=== PATIENT | female | born 1945 | race Caucasian/White ===

== ENCOUNTER → 2017-03-21 | Outpatient (CLI) | payer OTHER, BC ==
[~2017-03-21] MED LIST: AMLO-114 PO; ASPI-232 PO; ATOR-24 PO; CLTP PO; ESTR1CRE PV; ESZO1TAB18 PO; LORA-339 PO; LOSA50TA6 PO; LXP/20 PO; MELA3TAB12 PO; MULT-506 PO; MULTCAP94 PO; PRLSR20 PO; PTDOPS OP; WHITOIN3 OPB; ZNTT/150 PO
--- NOTE | 2017-03-25 14:58 | MAMMOGRAPHY REPORT ---
BILATERAL DIGITAL SCREENING MAMMOGRAM WITH CAD: 03/21/2017 CLINICAL HISTORY: Routine screening. Patient has no complaints. TECHNIQUE: Current study was also evaluated with a Computer Aided Detection (CAD) system. Bilatera l CC and MLO views were obtained. COMPARISON: Comparison is made to exams dated: 03/20/2016 mammogram, 03/13/2015 mammogram, 03/10/2014 mammogram, 03/09/2013 mammogram, 03/05/2012 mammogram, and 03/04/2011 mammogram - [facility]. BREAST COMPOSITION: There are scattered areas of fibroglandular density in both breasts. FINDINGS: There is an oval 7 mm mass seen within the left central breast, for which spot compressio n tomosynthesis views and possible breast ultrasound are recommended for further evaluation. This m ay represent a cyst. The remainder of both breasts are stable compared to prior exams, without suspicious masses, calcifi cations, or areas of architectural distortion noted. Scattered bilateral benign-appearing calcifica tions are not significantly changed. IMPRESSION: ACR BI-RADS CATEGORY 0: INCOMPLETE EVALUATION: NEED ADDITIONAL IMAGING EVALUATION Left breast mass, for which additional imaging evaluation is recommended. The patient will be muhammad d to schedule an appointment. Approximately 10% of breast cancers are not detected with mammography. A negative mammographic repor t should not delay biopsy if a clinically suggestive mass is present. Abby Dickerson M.D. /:03/21/2017 16:25:40 Airport Sales Agent: Ellie SINGH(Bruce)(Demar), [facility] letter sent: Addl Imaging 0 BI-RADS Code: ACR BI-RADS Category 0: Incomplete Evaluation: Need Additional Imaging Evaluation
== END | disposition home or self-care (01) ==
LOC: C.MAMM 11:43
PROVIDERS: ATTEND Internal Medicine
DX: Z12.31 Encounter for screening mammogram for malignant neoplasm of breast (principal); N63 Unspecified lump in breast

== ENCOUNTER → 2017-04-09 | Outpatient (CLI) | payer OTHER, BC ==
--- NOTE | 2017-04-09 16:40 | MAMMOGRAPHY REPORT ---
UNILATERAL LEFT DIGITAL DIAGNOSTIC MAMMOGRAM TOMOSYNTHESIS AND TARGETED LEFT ULTRASOUND: 04/09/2017 CLINICAL HISTORY: Call back from screening mammography for an oval 7 mm mass in the left central [address]. TECHNIQUE: Spot compression left CC and MLO 2-D digital and tomosynthesis images, full-field left CC and MLO to GE digital and tomosynthesis images were obtained. COMPARISON: Comparison is made to exams dated: 03/21/2017 mammogram, 03/20/2016 mammogram, 03/13/2015 m ammogram, 03/10/2014 mammogram, 03/09/2013 mammogram, and 03/05/2012 mammogram - [facility]. BREAST COMPOSITION: There are scattered areas of fibroglandular density in the left breast. FINDINGS: Spot compression views and tomosynthesis images of the left breast demonstrate persistence of a lobulated and circumscribed 5.5 x 8.0 x 5.0 mm mass in the 6:00 left breast, 5.9 cm distal to t he nipple. There are benign oil cysts identified in the 12:00 to 1:00 anterior left breast. Mild to moderate vascular calcification. No other definite mass, focal area of architectural distortion or suspicious microcavitation occasions are seen. Further evaluation with ultrasound was performed. Targeted ultrasound was performed in the 6:00, retroareolar and 12:00 axes of the left breast. In th e 6:00 axis, 2 cm from the nipple, there is an oval circumscribed predominantly anechoic cystic appea ring mass with internal nonvascular septations, which measures 5.8 x 2.3 x 4.4 mm. A benign anechoic simple cyst is identified in the 5:00 left breast, 1 cm from the nipple, measuring 4.0 x 2.0 x 2.6 m m. There is an isoechoic to hypoechoic circumscribed solid appearing mass in the 12:00 left breast, 1 cm from the nipple measuring 3.5 x 3.2 x 4.6 mm to adjacent smaller circumscribed oval hypoechoic s olid versus cystic masses are seen in the 11:30 left breast, 1 cm from the nipple, measuring 2.2 and 2.8 mm. There is another circumscribed hypoechoic solid-appearing mass in the 12:30 left breast, 2 c m from the nipple, measuring 5.4 x 2.9 x 3.9 mm. A benign anechoic rounded circumscribed simple cyst is identified in the 6:00 left breast, 3 cm from the nipple, measuring 4.4 x 4.1 x 6.1 mm. Given th e numerous sonographic masses it is unclear which correlates with the mammographic finding therefore two skin BBs and a radiodense circular marker were placed overlying the largest masses in the 6:00 an d 12:30 axes. Repeat left CC and MLO full field mammograms including tomosynthesis images were obtained. The first BB marker in the 12:00 to 12:30 axis may possibly correlate with a benign rim calcification/oil cyst seen mammographically. The second BB in the 5:00 to 6:00 left breast does not definitely correlate with any obvious mammographic finding. The circular marker aligns with the newly visualized mammogra phic mass in question and this corresponds to a probable complicated cyst identified on ultrasound. Definitive characterization with ultrasound guided cyst aspiration is recommended to assess for mammo graphicsonographic correlation. Ultrasound-guided core biopsy should also be performed of an indete rminate solid versus cystic mass seen in the 12:30 left breast, 2 cm from the nipple, which could pos sibly correlate with an oil cyst/fat necrosis. IMPRESSION: ACR BI-RADS CATEGORY 4: SUSPICIOUS, TARGETED ULTRASOUND ACR BI-RADS CATEGORY 4: SUSPICIO US 1. There is a newly visualized oval circumscribed 7 mm mass in the approximate 6:00 left breast mammo graphically, but numerous solid and cystic circumscribed masses were seen throughout the left breast both superiorly and inferiorly on ultrasound making it difficult to confirm exactly which sonographic mass correlates with the mammographic finding. After additional imaging to assess for mammographic sonographic correlation a complicated cyst with internal septations in the 6:00 left breast is though t to correlate with the mammographic finding. Ultrasound-guided cyst aspiration and post-aspiration mammography is recommended. If the cyst does not aspirate, core needle biopsy could be performed. 2. At the time of ultrasound-guided cyst aspiration, core needle biopsy should also be performed of an indeterminate hypoechoic circumscribed 5 mm mass in the 12:30 left breast, 2 cm from the nipple. These results and recommendations were discussed with the patient at the time of the exam per she ten tatively scheduled a cyst aspiration and core biopsy of the left breast, prior to leaving our departm ent. Approximately 10% of breast cancers are not detected with mammography. A negative mammographic report should not delay biopsy if a clinically suggestive mass is present. Brittany Donovan M.D. ay/:04/09/2017 15:24:53 Clay Pigeon Loader: Ellie CASE)(Demar), [facility] letter sent: Abnormal 4/5 BI-RADS Code: ACR BI-RADS Category 4: Suspicious Ultrasound BI-RADS: ACR BI-RADS Category 4: Suspici ous
== END | disposition home or self-care (01) ==
LOC: C.MAMM 13:56
PROVIDERS: ATTEND Internal Medicine
DX: N63 Unspecified lump in breast (principal)

== ENCOUNTER → 2017-04-22 | Outpatient (CLI) | payer OTHER, BC ==
--- NOTE | 2017-04-22 09:51 | Discharge Instructions ---
Discharge Instructions Procedure Procedure Date: Apr 22, 2017. Reason for visit: Left Mass. Discharge Discharge Date: Apr 22, 2017. Discharge Diagnosis: post left breast ultrasound guided cyst aspiration and core biopsy Instructions Activity Recommendations: Additional Limitations (see below) Return to School/Work: no limitations Recommended Home Diet: No Limitations Provider Instructions: ACTIVITY RECOMMENDATIONS: * No lifting, pushing, pulling or exercising the affected side for three days. RETURN TO SCHOOL/WORK: * You may return to work/school after the procedure, but do not perform any strenuous activities for 24 to 48 hours. MEDICATIONS: * Tylenol (two 325 mg) every four to six hours if needed for mild pain (if not allergic to Tylenol). DIET: * Resume previous diet. SPECIAL CARE INSTRUCTIONS: * Keep biopsy site dry for 24 hours. May shower after 24 hours, but do not soak (bathe) incision. * May remove Tegaderm (plastic patch) tomorrow AFTER showering. * Leave the steri-strips on for one week. Allow the steri-strips to fall off by themselves. If not off after one week, you may remove them. You may place a Bandaid crosswise over the strips, if desired. * Apply ice 10 minutes on and 10 minutes off as needed. * Wear a bra at bedtime to sleep more comfortably for 2-3 days. * Your referring physician should have the results after approximately 5 to 7 business days. * Call for unusual bleeding, fever, drainage, etc or if you have any questions call [phone] during normal business hours or after hours call Dr Dnoovan, . FOLLOW UP VISIT: Follow-up with Referring Physician as scheduled. Allergies Coded Allergies: DELLA Inhibitors (Verified Adverse Reaction, Unknown, COUGH, 12/02/15) Morphine (Unverified Adverse Reaction, Unknown, MORPHINE PUMP = PASSING OUT TWICE, 12/02/15) Hailey Lafleur Recommendations: Call your doctor if: * Temperature above 101 degrees * Pain not relieved by pain medicine ordered * There is increased drainage or redness from any incision * You have any unanswered questions or concerns. Your Doctors Instructions noted above were prepared by provider Brittany Donovan. Patient Signature Section: Patient Instructions Signature Page Kendy Clayton Patient (or Guardian) Signature/Date: I have read and understand the instructions given to me by my caregivers. Caregiver/RN/Doctor Signature/Date: The above-named patient and/or guardian has received patient instructions on this date. + Original Patient Signature Page (only) stays with chart. Please make copy for patient.
--- NOTE | 2017-04-22 13:28 | MAMMOGRAPHY REPORT ---
ASPIRATION: 04/22/2017 CLINICAL HISTORY: Probable comlicated cyst in the 6:00 left breast which may correlate with a mammogr aphic mass. Patient presents for ultrasound-guided cyst aspiration. Please refer to the report from left breast ultrasound guided core biopsy performed at the same time for full detail. IMPRESSION: ASPIRATION Please refer to the report from left breast ultrasound guided core biopsy performed at the same time for full detail. Brittany Donovan M.D. ay/:04/22/2017 09:53:58 Door And Arrival Attendant: Amira Finley, [facility]
--- NOTE | 2017-04-22 13:29 | MAMMOGRAPHY REPORT ---
UNILATERAL LEFT DIGITAL DIAGNOSTIC MAMMOGRAM TOMOSYNTHESIS: 04/22/2017 CLINICAL HISTORY: Status post ultrasound guided cyst aspiration in the 6:00 left breast and ultrasoun d guided core biopsy in the 12:30 left breast. Please refer to the report from left breast ultrasound guided core biopsy performed at the same time for full detail. IMPRESSION: POST PROCEDURE IMAGING FOR MARKER PLACEMENT Please refer to the report from left breast ultrasound guided core biopsy performed at the same time for full detail. Approximately 10% of breast cancers are not detected with mammography. A negative mammographic report should not delay biopsy if a clinically suggestive mass is present. Brittany Donovan M.D. ay/:04/22/2017 09:53:19 Form Setter Steel Pan Forms: Amira Finley, [facility] BI-RADS Code: Post Procedure Imaging For Marker Placement
--- NOTE | 2017-04-22 15:37 | MAMMOGRAPHY REPORT ---
THIS REPORT HAS BEEN AMENDED. MULTIPLE ULTRASOUND GUIDED BIOPSIES LEFT BREAST: 04/22/2017 CLINICAL HISTORY: 72-year-old woman presents for ultrasound-guided cyst aspiration and ultrasound-tammy ded core biopsy in the left breast. She was initially called back from screening mammography for a c ircumscribed 7 mm mass in the 6:00 anterior left breast. Diagnostic mammogram and ultrasound perform ed on 04/09/2017 demonstrated multiple cystic and solid sonographic lesions. One complex cyst in the 6:00 left breast was thought to correlate with the mammographic mass in question, and another solid mass identified in the 12:30 left breast on ultrasound had no definitive mammographic correlate. Criss kim presents for ultrasound-guided cyst aspiration and core biopsy. COMPARISON: Comparison is made to exams dated: 04/09/2017 ultrasound, 04/09/2017 mammogram, 03/21/2017 mammogram, 03/20/2016 mammogram, 03/13/2015 mammogram, and 03/10/2014 mammogram - [facility]. PATIENT CONSENT: The procedures of both ultrasound guided cyst aspiration and core needle biopsy risk s and benefits were discussed with the patient and informed written consent was obtained both verball y and in writing. Specific risks to this procedure include: bleeding, infection, puncture of adjacent structure, nontarget biopsy, sampling error, pain, metal allergy and medication reaction. PROCEDURE DESCRIPTION: First repeat targeted ultrasound was performed in the 6:00 and 12:30 axis of t he left breast to reevaluate the probable, located cyst as well as indeterminate solid mass, describe d on previous diagnostic mammogram/ultrasound report. In the 6:00 left breast, 2 cm from the nipple, the predominantly anechoic cystic appearing mass with nonvascular internal septations was again iden tified. In the 12:30 left breast, 2 cm from the nipple, an indeterminate solid mass with mild engineer chief ior shadowing is again identified. A time out was performed and the left breast was agreed as the site of biopsy. The skin of the left b reast was prepped and draped in the usual sterile fashion. The cystic mass in the 6:00 left breast wa s chosen as the target for ultrasound guided cyst aspiration. Subcutaneous and intraparenchymal 1% b uffered lidocaine was administered as local anesthesia. A 22-gauge needle was advanced into the cyst and aspiration was performed. This completely resolved confirming cystic nature. Then the solid-appearing mass in the 12:30 left breast was identified and targeted for biopsy. 1% bu ffered lidocaine with and without epinephrine was administered as local anesthesia. A skin incision was made. Through the incision, 5 samples were taken with a 14 gauge Achieve biopsy device. A metall ic marker was placed at the biopsy site. Hemostasis was achieved after manual compression. The patien t tolerated the procedure well and there was no immediate complication. The samples were sent to the pathology department in an appropriately labeled container. Post procedure left CC and ML 2-D digital and tomosynthesis images were obtained. There is a new rib bon-shaped metallic biopsy marker adjacent to a rim calcification in the 12:30 anterior left breast. A portion of the rim is no longer present, suggesting the biopsied solid mass represents fat necrosi s. The circumscribed oval 7 mm mass in the 6:00 left breast is still present. Therefore, the cyst w hich was aspirated in the 6:00 axis did not correlate. It is possible that this mass could correspon d to another benign simple cyst also seen in the 6:00 left breast on ultrasound. Overall given the b enign mammographic features and circumscribed borders it is most likely benign but a short interval f ollow-up diagnostic left mammogram and possible repeat ultrasound is recommended to ensure stability in 6 months. IMPRESSION: ULTRASOUND GUIDED BIOPSY 1. Status post ultrasound-guided cyst aspiration in the 6:00 left breast, and ultrasound-guided core biopsy in the 12:30 left breast. A ribbon-shaped metallic biopsy marker was placed at the site of th e biopsy in the 12:30 axis and it is seen adjacent to a partial rim calcification, suggesting it repr esents fat necrosis. 2. The aspirated mass in the 6:00 left breast does not correlate with the circumscribed mammographic mass in question. Therefore, a short interval follow-up diagnostic left mammogram including tomosyn thesis images and possible repeat ultrasound is recommended to ensure stability in 6 months, pending benign pathology results. Brittany Donovan M.D. ay/:04/22/2017 14:34:26 Binder Roller: Amira Finley, [facility] AMENDMENT: 04/30/2017 Brittany Donovan M.D. Pathology results from the ultrasound-guided core biopsy of an indeterminate solid mass in the 12:30 left breast yielded benign breast tissue with microcalcification. Negative for DCIS and invasive car cinoma. The pathology results are concordant with the imaging appearance. Given that neither the co re needle biopsy marker clip no the cyst aspiration demonstrated correlation with the original mass s een on screening mammography on 03/21/2017, a short interval follow-up diagnostic left mammogram and possible repeat ultrasound is recommended to ensure stability in 6 months.
== END | disposition home or self-care (01) ==
LOC: C.MAMM 08:50
PROVIDERS: ATTEND Internal Medicine
DX: N63 Unspecified lump in breast (principal); R92.0 Mammographic microcalcification found on diagnostic imaging of breast

== ENCOUNTER → 2017-10-23 | Outpatient (CLI) | payer OTHER, BC ==
--- NOTE | 2017-10-23 13:47 | MAMMOGRAPHY REPORT ---
UNILATERAL LEFT DIGITAL DIAGNOSTIC MAMMOGRAM TOMOSYNTHESIS WITH CAD AND TARGETED LEFT ULTRASOUND: CLINICAL HISTORY: The patient is status post ultrasound-guided core needle biopsy of a left 12:30 margar[address] mass which yielded benign pathology. She also underwent aspiration of a cyst in the left 6:00 br east, which did not correlate with the original mammographic mass seen on the screening mammogram. T he patient presents for short interval follow-up of the mammographic mass. She reports no new compla ints. TECHNIQUE: Breast tomosynthesis in addition to standard 2D mammography was performed. Current study was also evaluated with a Computer Aided Detection (CAD) system. Left CC and MLO and XCCL 2-D and to mosynthesis images were obtained. COMPARISON: Comparison is made to exams dated: 04/22/2017 mammogram, 04/22/2017 ultrasound biopsy, 03/28 aspiration, 04/09/2017 ultrasound, 04/09/2017 mammogram, and 03/21/2017 mammogram - [facility]. BREAST COMPOSITION: There are scattered areas of fibroglandular density in the left breast. FINDINGS: Again noted is an oval circumscribed 7 mm benign-appearing mass in the left central breast . The mass is stable compared to the prior March 2017 exam. The remainder of the left breast is also stable, without suspicious masses, calcifications, or areas of architectural distortion noted. A fe w other scattered round/oval circumscribed benign-appearing masses are seen within the left breast, w hich likely represent cysts. Scattered benign-appearing calcifications are stable. A biopsy marker clip is again noted within the left upper outer quadrant. Targeted ultrasound was performed of the left central/6:00 breast in the region of the mammographic m ass. Numerous benign cysts were seen during the exam, including an oval anechoic benign 4 x 3 mm cys t in the left 6:00 periareolar breast, an anechoic benign simple cyst measuring 5 x 4 mm in the left breast at 5:00, 3 cm from the nipple, and an anechoic benign cyst with a thin internal septation grabiel uring 3 x 4 mm in the left subareolar breast. One of these cysts is felt to correspond with the stab le mammographic mass. IMPRESSION: ACR BI-RADS CATEGORY 2: BENIGN, TARGETED ULTRASOUND ACR BI-RADS CATEGORY 2: BENIGN The circumscribed mammographic mass in the left central breast is stable compared to the March 2017 ex am. A few small benign cysts are seen in the region on ultrasound, one of which is felt to correspon d with the mammographic mass. There is no mammographic or targeted sonographic evidence of malignanc y. Return to annual mammogram screening schedule is recommended, due February 2018. The patient has been verbally notified of the results. Approximately 10% of breast cancers are not detected with mammography. A negative mammographic report should not delay biopsy if a clinically suggestive mass is present. Abby Dickerson M.D. ah/:10/23/2017 10:25:46 Bioinformatics Computer Scientist: Ellie SINGH(Bruce)(Demar), [facility] letter sent: Normal 1/2 BI-RADS Code: ACR BI-RADS Category 2: Benign Ultrasound BI-RADS: ACR BI-RADS Category 2: Benign
== END | disposition home or self-care (01) ==
LOC: C.MAMM 09:56
PROVIDERS: ATTEND Internal Medicine
DX: N63.20 Unspecified lump in the left breast, unspecified quadrant (principal)